=== PATIENT | male | born 1970 | race Caucasian/White ===

== ENCOUNTER 2017-04-01 09:53 | Emergency (ER) | payer OTHER ==
[~2017-04-01] VITALS: Ht 172.7 cm; Wt 82.8 kg
[~2017-04-01 09:53] MED LIST: BUPR150T8 PO; CHLO25CA10 PO; METO-386 PO; SILD10VI2 PO; VENL150C98 PO
[2017-04-01 10:02] VITALS: BP 112/79; PULSE 115; RESP 26; O2SAT 95
--- NOTE | 2017-04-01 10:22 | ED.REPORT ---
HPI-General Illness Date of Service Apr 01, 2017 ED Provider: Jacoby Hawkins MD Patient is a 47 year old male with a hx of CHF (thought secondary to alcoholic cardiomyopathy), EtOH abuse with previous withdrawal related seizures, polysubstance abuse, asthma and aortic stenosis who who presents to the ED complaining of dyspnea on exertion and increasing lower extremity edema over the last week. Associated symptoms include lower extremity swelling, and mild/ vague chest discomfort. When asked about his symptoms he states "my CHF is flaring up." He denies fever, chills, vomiting, or any other symptoms. Pt was prescribed 25 mg metoprolol but has not taken it in the past 6 mo. He does not take a diuretic or any other daily medications. The patient admits to actively using methamphetamine. He states he used IV methamphetamine 3 days ago and smoked methamphetamine this morning. No cough, no fever. He is not currently homeless. Nursing Notes Stated Complaint: CONGESTIVE HEART FAILURE ACTING UP Chief Complaint: Respiratory Distress Nursing Notes Reviewed: Yes Allergies: Coded Allergies: No Known Allergies (Unverified Allergy, Unknown, 04/04/16) Scheduled Bupropion ER (Wellbutrin SR) 150 Mg Tablet.er 150 MG PO BID Furosemide (Lasix) 20 Mg Tablet 20 MG PO BID Magnesium Oxide (Mag-Oxide) 400 Mg Tablet 400 MG PO DAILY Metoprolol Succinate ER (Metoprolol Succinate ER) 25 Mg Tab.er.24h 25 MG PO DAILY Potassium Chloride ER (Potassium Chloride ER) 20 Meq Tablet.er 20 MEQ PO DAILY TAKE WITH FOOD Sildenafil Citrate (Sildenafil Citrate) 10 Mg/12.5 Ml Vial 20 MG PO DAILY Venlafaxine ER (Venlafaxine ER) 150 Mg Cap.er.24h 150 MG PO DAILY Scheduled PRN Chlordiazepoxide (Chlordiazepoxide) 25 Mg Capsule 25 MG PO BID PRN PRN For Anxiety take for 5 days then stop General Time Seen by MD: 10:18 Chief Complaint Breathing problem Hx Obtained From: Patient Arrived By: Walk-in Sudden in Onset?: No Onset Occurred: 1 week ago Symptom Duration: Since onset Location: : Chest Quality: Dull (discomfort ) Severity: Current: Mild Severity: Maximum: Mild Similar Sx Previous: Yes Past Medical History Past Medical History Notes: [facility] Past Medical History 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 Aortic stenosis DE GERD Depression Anxiety Pyloric stenosis as infant Reports: Asthma, Congestive heart failure Past Surgical History Denies Family History Noncontributory Smoking History Current Every Day Smoker Social History Alcohol Use: >5 per day Drug Use: IV drugs, Meth Other Social History: , Local resident, Homeless Ambulatory Status Independent Review of Systems Full Review of Systems Constitutional: Denies: Chills, Fever Respiratory: Reports: Dyspnea on exertion Cardiovascular: Reports: Chest pain (discomfort ) GI: Denies: Vomiting Musculoskeletal: Reports: Extremity swelling Complete sys rev & neg: except as marked. Physical Exam Vital Signs Vital Signs Date Time Temp Pulse Resp B/P Pulse Ox O2 Delivery O2 Flow Rate FiO2 04/01/17 12:01 115 28 112/73 97 Nasal Cannula 2 04/01/17 10:37 119 32 115/77 93 Nasal Cannula 2 04/01/17 10:02 36.5 115 26 112/79 95 Room Air Initial VS: Reviewed, Vital signs abnormal Head / Eyes: Atraumatic, Normocephalic Neck: Full range of motion Abdomen / GI: Soft, Non-tender, No distention Skin: Warm, Dry Neurologic: Alert, Oriented, Nonfocal General/Constitutional: Awake, Alert Respiratory / Chest: Atraumatic Mild crackles in lung bases bilaterally Good air movement Cardiovascular: Regular rhythm, Heart sounds NL Heart Rate / Rhythm: Positive: Tachycardia Good distal pulses 2+ pitting edema symmetrically to the bilateral lower extremities extending above the knees Male Genitourinary: Atraumatic Edema to the scrotum and penis Interpretation & Diagnostics previous ECHO dated 03/11/10: Interpretation Summary The left ventricle is mildly dilated. Left ventricular systolic function is normal. The ejection fraction estimate is 55-60%. Assessment of diastolic parameters indicates normal left ventricular diastolic function and normal filling pressures. The right ventricle is normal in size and function. The left atrium is mildly dilated. Pulmonary artery pressures cannot be estimated because of the lack of a measurable TR jet velocity. There is mild mitral regurgitation. Since 09/22, slight further improvement in LV function and diminution in mitral regurgitation. Lab Results Interpretation Result Diagram: 04/01/17 1045 04/01/17 1125 Test 04/01/17 10:45 04/01/17 11:25 04/01/17 13:02 White Blood Count 7.0th/mm3 (3.8-10.1) Red Blood Count 4.71mil/mm3 (4.40-5.80) Hemoglobin 12.8g/dL (13.8-17.2) Hematocrit 38.8% (41.0-50.0) Mean Corpuscular Volume 82.4fL (81-100) Mean Corpuscular Hemoglobin 27.2pg (27.0-35.0) Mean Corpuscular Hemoglobin Concent 33.0% (32.0-37.0) Red Cell Distribution Width 14.6% (12.3-15.4) Platelet Count 194bil/L (150-400) Neutrophils (%) (Auto) 62.2% (40-74) Lymphocytes (%) (Auto) 25.5% (14-46) Monocytes (%) (Auto) 10.2% (4-12) Eosinophils (%) (Auto) 1.6% (0-5) Basophils (%) (Auto) 0.4% (0-3) Sodium Level 140mEq/L (134-144) Potassium Level 3.9mEq/L (3.5-5.2) Chloride Level 105mEq/L (97-108) Carbon Dioxide Level 19mmol/L (18-29) Blood Urea Nitrogen 20mg/dL (6-24) Creatinine 0.88mg/dL (0.76-1.27) Estimat Glomerular Filtration Rate 99mL/min (>59) Glucose Level 141mg/dL (60-99) Calcium Level 8.9mg/dL (8.5-10.1) Total Bilirubin 1.2mg/dL (0.0-1.2) Aspartate Amino Transf (AST/SGOT) 48U/L (0-50) Alanine Aminotransferase (ALT/SGPT) 42U/L (0-44) Alkaline Phosphatase 67U/L (25-150) Troponin T 0.010ug/L (0.0-0.011) Pro-B-Type Natriuretic Peptide 5433pg/mL (0-121) Total Protein 6.1g/dL (6.4-8.4) Albumin 3.6g/dL (3.4-5.0) Urine Color Straw (YELLOW) Urine Appearance Clear (CLEAR,HAZY) Urine pH 5.0 (5.0-8.0) Urine Specific Lawrence 1.010 (1.003-1.035) Urine Protein Negativemg/dL (NEG,TRACE) Urine Glucose (UA) Negativemg/dL (NEGATIVE) Urine Ketones Negativemg/dL (NEGATIVE) Urine Occult Blood Negative (NEGATIVE) Urine Nitrite Negative (NEGATIVE) Urine Bilirubin Negative (NEGATIVE) Urine Urobilinogen Normalmg/dL (NORMAL) Urine Leukocyte Esterase Negative (NEGATIVE) Urine RBC 0-2/hpf (0-2) Urine WBC 0-5/hpf (0-5) Urine Epithelial Cells Occasional/hpf (NONE-MOD) Urine Crystals None seen (NONE SEEN) Urine Bacteria None/hpf (NONE-FEW) Urine Hyaline Casts None/lpf (NONE) Urine Granular Casts None seen (NONE SEEN) Urine Waxy Casts None seen (NONE SEEN) Urine Red Blood Cell Casts None seen (NONE SEEN) Urine White Blood Cell Casts None seen (NONE SEEN) Urine Mucus None seen (None Seen) Urine Trichomonas None seen (NONE SEEN) Urine Yeast None (NONE SEEN) Urinalysis Comment None Urine Culture Reflexed Not indicated ECG Interpretation ECG Interpretation: Sinus tachycardia rate of 115 L axis deviation prolonged QT interval diffuse T wave abnL throughout all leads compared to prior dated 04/09/16 pt is still tachy though t wave abnL now present Time: 10:13 Interpreted by: ED physician ECG Interpretation: Repeat EKG confirms that diffuse t-wave abnormalities are not due to abnormal lead placements and are, in fact, new. Time: 10:34 Interpreted by: ED physician Repeat ECG: Repeat ECG unchanged X-Ray Chest Interpretation Chest Xray Interpretation: IMPRESSION: Cardiomegaly which has developmental since prior examination. Large pericardial effusion cannot be excluded. Dictated by: Windy Najera MD, PhD on 04/01/2017 at 11:40 Approved by: Windy Najera MD, PhD on 04/01/2017 at 11:42 View: Portable, 1 view Interpretation / Wet Read by: Interpret - Radiologist Re-Eval/Medical Decision Med Decision/Clinical Course Patient is a 47 year old male with a hx of CHF (thought secondary to alcoholic cardiomyopathy), EtOH abuse with previous withdrawal related seizures, polysubstance abuse, asthma and aortic stenosis who who presents to the ED complaining of dyspnea on exertion and increasing lower extremity edema over the last week. Associated symptoms include lower extremity swelling, and mild/ vague chest discomfort. When asked about his symptoms he states "my CHF is flaring up." He denies fever, chills, vomiting, or any other symptoms. Pt was prescribed 25 mg metoprolol but has not taken it in the past 6 mo. He does not take a diuretic or any other daily medications. The patient admits to actively using methamphetamine. He states he used IV methamphetamine 3 days ago and smoked methamphetamine this morning. No cough, no fever. He is not currently homeless. Upon arrival in the emergency department the patient is tachycardic though in no apparent distress. He is noted to have oxygen saturation of 91% on room air and was placed on 2 L by nasal cannula. He is alert/awake and answering questions appropriately. He is afebrile with stable blood pressure. Clinical presentation is consistent with exacerbation of his underlying congestive heart failure, I suspect that his methamphetamine abuse is a major contributor. I applied Nitropaste to his chest and administered 40 mg of IV furosemide. Shortly thereafter he was noted to have produced a large amount of urine. EKG Sinus tachycardia rate of 115 L axis deviation prolonged QT interval diffuse T wave abnL throughout all leads compared to prior dated 04/09/16 pt is still tachy though t wave abnL now present Repeat EKG confirms that diffuse t-wave abnormalities are not due to abnormal lead placements and are, in fact, new. Laboratory studies were reviewed as below: labs CBC unremerk CMP unremark trop neg BNP 5433 Chest xray: cardiomegaly large pericardial effusion previous ECHO dated 03/11/10 Interpretation Summary The left ventricle is mildly dilated. Left ventricular systolic function is normal. The ejection fraction estimate is 55-60%. Assessment of diastolic parameters indicates normal left ventricular diastolic function and normal filling pressures. The right ventricle is normal in size and function. The left atrium is mildly dilated. Pulmonary artery pressures cannot be estimated because of the lack of a measurable TR jet velocity. There is mild mitral regurgitation. Since 09/22, slight further improvement in LV function and diminution in mitral regurgitation. Presentation at this time is consistent with exacerbation of the patient's underlying congestive heart failure in the setting of polysubstance abuse and noncompliance with his medications. The differential diagnosis does include valvular etiologies and he is at higher risk for valvular problems given his IV drug use. He is also noted to have a history of some mild aortic stenosis. I recommended that we start diuresis and admit the patient for ongoing medical management, consultation with cardiology and echocardiogram. The patient was discussed with the admitting hospitalist and accepted for further management. The patient initially seemed amenable to admission to the hospital though later changed his mind stating that he absolutely would not be admitted to the hospital. I had a long conversation about this with the patient and at this time he demonstrates understanding and insight into his condition as well as decisional capacity. He understands the risks of refusing to be admitted to the hospital. I lieu of the patient's refusal to be admitted I contacted his mule driver (Dr. Conley diamond setter apprentice for Dr. Noe). We reviewed his most recent echocardiogram in 2012 as well as history and presentation today. They have recommended that we start him on 40 mg of Lasix daily as well as potassium repletion. They agreed to see him in clinic and he will call them first thing on Monday for an appointment. At this time the patient is being discharged AGAINST MEDICAL ADVICE. He has been provided prescriptions and agrees to follow up with his primary care physician and mule driver on an outpatient basis. He is noted to still be tachycardic and I suspect that this is likely due to his recent methamphetamine abuse though potentially also related to his congestive heart failure exacerbation. The patient does not have major pulmonary embolism risk factors and his initial presentation is less convincing for PE. He is noted to have diffuse T wave changes on his EKG which may be related to demand ischemia as well as cardiac stress related to methamphetamine abuse and congestive heart failure. My additional recommendations related to this were serial troponin testing and possible CT angiogram which she has also refused as he refuses admission. The patient was discharged and we have discussed this follow-up plan as well as return precautions and that he should come back at any time should he desire to be admitted to the hospital for further workup and treatment. He is also repeatedly been urged to stop using methamphetamine. Time of Eval: 12:51 Re-Evaluation/Progress Note: Rechecked pt. Discussed lab and imaging results. Discussed treatment plan including admission and ECHO. Pt asked if he could have treatment as an outpatient. Explained in depth the risks of leaving and benefits of admission. Pt would like to think about it. Time of Eval: 13:31 Re-Evaluation/Progress Note: Rechecked pt and offered admsision again. Pt refuses admission and requests consultation with his mule driver about outpatient treatment. Consultation #1: Referral / Consult Name: Javier Crespo MD Consulted With: Hospitalist Call Returned at: 12:56 Construction Representative: Will see patient, Agrees with eval, Agrees with plan, Accepts admit Note: Discussed pt's case. Accepts admit. Consultation #2: Referral / Consult Name: Jose A Conley MD Consulted With: Cardiology Call Returned at: 13:47 Note: Discussed pt's case. Pt had an ECHO in 2012 that showed normal LV function. Start pt on Lasix 40mg, 40mg potassium, and 400mg of mag oxide daily. Follow up with cardiology and PCP. Stop using meth. Counseled Regarding: Diagnosis, Lab results, Need for admission Discharge & Departure Primary Impression: CHF exacerbation Congestive heart failure type: unspecified congestive heart failure type Qualified Code: I50.9 - Heart failure, unspecified Additional Impressions: Tachycardia Cardiomegaly Methamphetamine abuse IV drug abuse Counseling on substance use and abuse Elevated brain natriuretic peptide (BNP) level Alcoholic cardiomyopathy Noncompliance by refusing intervention or support Disposition: Home Discharge Condition All VS Reviewed: Yes Condition: Stable Additional Instructions: Thank you for seeking care at the emergency room. It is difficult for us to make definitive diagnoses in the ED but we believe that you are experiencing an exacerbation of your congestive heart failure. It was strongly recommended that you be admitted but you have decided to leave against our advice. Please return if you change your mind. Our primary goal today in the ED was to evaluate you for any life-threatening conditions. Your evaluation was reassuring. You will be discharged with prescriptions for Lasix, potassium, and Mag Oxide. Please take as directed. Please stop using meth. Call your mule driver and primary doctor first thing on Monday to schedule follow up appointments within the next week. You should return to the ED immediately if you develop fevers, vomiting, cough, shortness of breath, lower extremity swelling, chest pain, lightheadedness, weakness or any other concerning signs or symptoms. Thank you for letting us partake in your care today. Referrals: Crow Langley MD (PCP) Scribe Attestation Portions of this note were transcribed by Ivis Felix. I, Dr. Hawkins personally performed the history, physical exam and medical decision-making; I reviewed and confirmed the accuracy of the information in the transcribed note. Signed by: Rosalee Saldana, 04/01/17 copies to: Crow Langley MD, Beck O MD Apr 01, 2017 10:22 IVIS FELIX Apr 01, 2017 10:29
[2017-04-01] MEDS ORDERED: Nitroglycerin 2% 1 Gm Ointment TOPICAL SCH (10:35)
[2017-04-01] MEDS ORDERED: Furosemide 10 mg/mL 4 mL Inj IVPUSH ONE (10:35)
[2017-04-01 10:37] VITALS: BP 115/77; PULSE 119; RESP 32; O2SAT 93
[2017-04-01 10:57] LABS: BASOPHILS % (AUTO) 0.4 % (0-3); EOSINOPHILS % (AUTO) 1.6 % (0-5); MONOCYTES % (AUTO) 10.2 % (4-12); Mean Corpuscular Hemoglobin 27.2 pg (27.0-35.0); Mean Corpuscular Volume 82.4 fL (81-100); NEUTROPHILS % (AUTO) 62.2 % (40-74); Platelet Count 194 bil/L (150-400)
--- NOTE | 2017-04-01 11:44 | DRSVH ---
PROCEDURE: X-RAY CHEST ONE VIEW, PORTABLE ([id number]) INDICATIONS: dyspnea TECHNIQUE: One view of the chest was acquired. COMPARISON: [facility], CR, XR CHEST 1VW (PORTABLE), 03[facility]19[facility]2016, 14:29[facility], [facility], 18:21. [facility], CR, XR CHEST 1VW (PORTABLE), 03/17, 23:52. FINDINGS: Surgical changes and devices: None. Lungs and pleura: No pleural effusions or pneumothorax. Lungs are clear. Mediastinum: Mediastinal contours appear normal. Heart size is enlarged. Bones and chest wall: No suspicious bony lesions. Overlying soft tissues appear unremarkable. IMPRESSION: Cardiomegaly which has developmental since prior examination. Large pericardial effusion cannot be excluded. Dictated by: Windy Najera MD, PhD on 04/01/2017 at 11:40 Approved by: Windy Najera MD, PhD on 04/01/2017 at 11:42
[2017-04-01 12:01] VITALS: BP 112/73; PULSE 115; RESP 28; O2SAT 97
[2017-04-01 12:07] LABS: TROPONIN T 0.01 ug/L (0.0-0.011)
[2017-04-01] MEDS ORDERED: Alum-Mag Hydrox-Simeth 30 mL Suspension PO PRN (12:30)
[2017-04-01] MEDS ORDERED: Ondansetron 2 mg/mL 2 mL Inj IVPUSH PRN (12:30)
[2017-04-01 13:46] VITALS: BP 119/71; PULSE 112; RESP 20; O2SAT 97
[2017-04-01 13:47] LABS: APPEARANCE,URINE CLEAR (CLEAR,HAZY); COLOR,URINE STRAW (YELLOW); OCCULT BLOOD,URINE NEGATIVE (NEGATIVE); UROBILINOGEN,URINE NORMAL (NORMAL)
[2017-04-01] MEDS ORDERED: MAGN400T23 PO (13:57)
[2017-04-01] MEDS ORDERED: FURO-129 PO (13:57)
[2017-04-01] MEDS ORDERED: POTA-62 PO (13:57)
[2017-04-01 14:58] VITALS: BP 119/80; PULSE 109; RESP 26; O2SAT 97
[2017-04-07] MEDS ORDERED: FURO40TA4 PO (10:42)
[2017-04-07] MEDS ORDERED: WARF5TAB7 PO (10:42)
[2017-04-07] MEDS ORDERED: CARV3.122 PO (10:42)
[2017-04-07] MEDS ORDERED: LISI-571 PO (10:42)
== END 2017-04-01 15:01 | disposition home or self-care (01) ==
LOC: SED 09:53 → UNDOADMIN 13:16 → MPC 13:16
DX: I50.9 Heart failure, unspecified (principal); R00.0 Tachycardia, unspecified; Q24.8 Other specified congenital malformations of heart; F15.10 Other stimulant abuse, uncomplicated; R79.89 Other specified abnormal findings of blood chemistry; I42.6 Alcoholic cardiomyopathy; I25.2 Old myocardial infarction; K21.9 Gastro-esophageal reflux disease without esophagitis; F17.200 Nicotine dependence, unspecified, uncomplicated; Z91.19 Patient's noncompliance with other medical treatment and regimen
CPT/HCPCS: 36415; 71010; 80053; 81000; 83880; 84484; 85025; 93005; 96374; 99285; J1940

== ENCOUNTER 2017-04-15 16:19 | Inpatient (IN) | payer OTHER ==
[~2017-04-15] VITALS: Ht 172.7 cm; Wt 77.5 kg
[~2017-04-15 16:19] MED LIST changes: -BUPR150T8 PO; +CARV3.122 PO; -CHLO25CA10 PO; +DABI150C PO; +FUR20 PO; +IBUP200C PO; +LISI-571 PO; +MAGN400T23 PO; -METO-386 PO; +NAPR220C16 PO; +POTA-62 PO; -SILD10VI2 PO; -VENL150C98 PO
[2017-04-15 16:38] VITALS: BP 106/75; PULSE 114; RESP 24; O2SAT 96
--- NOTE | 2017-04-15 19:18 | ED.REPORT ---
HPI-General Illness Date of Service Apr 15, 2017 ED Provider: Donis Anglin MD The patient is a 47 year old homeless male with a history of CHF, [place], edema, COPD, pneumonia, GERD, and depression presenting to the ED complaining of chest pain onset earlier today. The pain is in the middle of his chest and is nonradiating. He describes the pain as sharp and similar to previous chest pain he's experienced. The pain is exacerbated with movement and deep breaths. He claims that nothing relieves the pain. Additionally, the patient reports SOB that is progressively worsening. The patient has not other complaints. The patient was discharged yesterday after being diagnosed with an acute hypoxic respiratory failure. Nursing Notes Stated Complaint: SHORTNESS OF BREATH,CHEST PAIN, WEAK, BLUE IN NOSE Chief Complaint: Respiratory Distress Nursing Notes Reviewed: Yes Allergies: Coded Allergies: No Known Allergies (Verified Allergy, Unknown, 04/15/17) Scheduled Carvedilol (Carvedilol) 3.125 Mg Tablet 6.25 MG PO BIDWM Dabigatran Etexilate Mesylate (Pradaxa) 150 Mg Capsule 150 MG PO BID Furosemide (Furosemide) 20 Mg Tab 20 MG PO BIDWM Lisinopril (Lisinopril) 5 Mg Tablet 2.5 MG PO DAILY Magnesium Oxide (Mag-Oxide) 400 Mg Tablet 400 MG PO DAILY Potassium Chloride ER (Potassium Chloride ER) 20 Meq Tablet.er 20 MEQ PO DAILY TAKE WITH FOOD Scheduled PRN Albuterol HFA (Proair HFA) 8.5 Gm Hfa.aer.ad 2 PUFFS INHALATION Q4H PRN PRN For Shortness of Breath General Time Seen by MD: 19:14 Chief Complaint Chest pain Hx Obtained From: Patient Arrived By: Walk-in Sudden in Onset?: Yes Onset Occurred: 1 - 4 hours ago Symptom Duration: Since onset Location: : Chest Quality: Same as prior Radiation: : Does not radiate Severity: Current: Moderate Severity: Maximum: Moderate Associated with: Reports: Shortness of breath Exacerbated by: Moving affected area, Standing up Pertinent Negative: Relieved by nothing Recent Healthcare: Recent doctor visit, Recent hospitalization Similar Sx Previous: Yes Past Medical History Past Medical History Notes: Cards: [place] Just left AMA after admit for PE Past Medical History 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 Aortic stenosis [place] GERD Depression Anxiety Pyloric stenosis as Reports: Asthma, Congestive heart failure Past Surgical History Pyloric stenosis repair as an Family History Noncontributory Smoking History Current Every Day Smoker Social History Alcohol Use: >5 per day Drug Use: IV drugs, Meth Other Social History: , Local resident, Homeless Ambulatory Status Independent Review of Systems Full Review of Systems Constitutional: Denies: Fever Eyes: Denies: Visual loss left, Visual loss right Ears / Nose / Throat: Denies: Sore throat Respiratory: Reports: Dyspnea on exertion, Shortness of breath Cardiovascular: Reports: Chest pain GI: Denies: Abdominal pain Male: Denies Dysuria Musculoskeletal: Denies: Back pain Hematologic: Denies Petechiae Endocrine: Denies: Polyuria Skin: Denies Bruising Allergy / Immune: Denies: Itching Neurologic: Denies: Headache Psychiatric: Denies: Change mental status Complete sys rev & neg: except as marked. Physical Exam Nursing note and vitals reviewed. Constitutional: Well-developed, well-nourished. Not diaphoretic. Head: Normocephalic and atraumatic. Mouth/Throat: Oropharynx is clear and moist. No oropharyngeal exudate. Eyes: EOM are normal. Pupils are equal, round, and reactive to light. Neck: Supple, no tracheal deviation. Cardiovascular: Tachycardic, regular rhythm. Equal and intact distal pulses throughout. Pulmonary/Chest: Effort normal and breath sounds normal. No respiratory distress. Abdominal: Soft. No distension. There is no tenderness, rebound, or guarding. Bowel sounds present. Musculoskeletal: Range of motion grossly intact, moving all extremities. No edema or tenderness appreciated. Neurological: AOx3. Grossly nonfocal exam. Strength and sensation intact and equal to bilateral upper and lower extremities. Skin: Warm and dry, no rashes or pallor appreciated. Psychiatric: Appropriate mood and affect. Behavior appears normal. Vital Signs Vital Signs Date Time Temp Pulse Resp B/P Pulse Ox O2 Delivery O2 Flow Rate FiO2 04/15/17 22:50 107 20 103/65 98 Room Air 04/15/17 20:27 106 20 106/80 92 Room Air 04/15/17 16:38 37.1 114 24 106/75 96 Room Air Initial VS: Reviewed Interpretation & Diagnostics Lab Results Interpretation Result Diagram: 04/15/17194204/15/171942 Test 04/15/17 19:43 White Blood Count 11.3th/mm3 (3.8-10.1) Red Blood Count 5.02mil/mm3 (4.40-5.80) Hemoglobin 13.1g/dL (13.8-17.2) Hematocrit 39.1% (41.0-50.0) Mean Corpuscular Volume 77.9fL (81-100) Mean Corpuscular Hemoglobin 26.1pg (27.0-35.0) Mean Corpuscular Hemoglobin Concent 33.5% (32.0-37.0) Red Cell Distribution Width 14.4% (12.3-15.4) Platelet Count 208bil/L (150-400) Neutrophils (%) (Auto) 67.6% (40-74) Lymphocytes (%) (Auto) 18.3% (14-46) Monocytes (%) (Auto) 13.1% (4-12) Eosinophils (%) (Auto) 0.4% (0-5) Basophils (%) (Auto) 0.2% (0-3) Activated Partial Thromboplast Time 29.7sec (22.8-33.0) Sodium Level 136mEq/L (134-144) Potassium Level 4.2mEq/L (3.5-5.2) Chloride Level 99mEq/L (97-108) Carbon Dioxide Level 21mmol/L (18-29) Blood Urea Nitrogen 22mg/dL (6-24) Creatinine 0.70mg/dL (0.76-1.27) Estimat Glomerular Filtration Rate 129mL/min (>59) Glucose Level 107mg/dL (60-99) Calcium Level 8.8mg/dL (8.5-10.1) Magnesium Level 2.1mg/dL (1.6-2.6) Total Bilirubin 1.2mg/dL (0.0-1.2) Aspartate Amino Transf (AST/SGOT) 51U/L (0-50) Alanine Aminotransferase (ALT/SGPT) 95U/L (0-44) Alkaline Phosphatase 60U/L (25-150) Troponin T < 0.010ug/L (0.0-0.011) Pro-B-Type Natriuretic Peptide 6261pg/mL (0-121) Total Protein 6.5g/dL (6.4-8.4) Albumin 3.5g/dL (3.4-5.0) Hold Deleon Top Tube Received (Received) Lab Results Interpretation: LABS: BNP 6261 from 4095 1 week ago Troponin negative Mildly elevated LFTs down from previous WBC 11.3 from 10.2 yesterday Vitals: Tachycardia 114 Respiratory rate 20 from 24 BP 106/80 92% Room air ECG Interpretation ECG Interpretation: Sinus tachycardia Right atrial enlargement Incomplete RBBB and LAFB Consider RVH w/ secondary repol abnormality Rate 115 Time: 19:04 Interpreted by: ED physician Normal ECG Interpretation: No change from prior ECGs CT Chest Interpretation IMPRESSION: Interval significant reduction in size of a previously documented right lower lobe central pulmonary embolus, reduced in volume by approximately 1/2 from the prior study dated 04/09/17. No new pulmonary embolus is seen. Note is again made of global cardiomegaly, in this patient with previously reported cardiomyopathy. Dictated by: Duane Monroy M.D. on 04/15/2017 at 21:35 Interpretation / Wet Read by: Interpret - Radiologist Re-Eval/Medical Decision Med Decision/Clinical Course 47-year-old male with a complex past medical history including CHF, dilated cardiomyopathy, recent admission for pulmonary embolus presenting to the ED for evaluation of worsening chest pain and shortness of breath. Differential includes ACS, PE, pneumothorax, pneumonia, etc. Laboratory studies as per above , notable for BNP 6261 from 73235 week ago, troponin negative, mildly elevated LFTs however down from previous, white blood count of 11.3 from 10.2 yesterday. Patient tachycardic, dyspneic here in the ED. Repeat CT demonstrates continued pulmonary embolus as previously. Patient restarted on heparin drip here in the emergency department. Plan admission for further management and evaluation of this complex and critically ill patient. Time of Eval: 21:57 Re-Evaluation/Progress Note: Discussed plan to admit. Pt agrees. Consultation : Referral / Consult Name: Bharti Shi DO Call Returned at: 21:23 Rn Vascular: Will see patient, Agrees with plan, Accepts admit Counseled Regarding: Diagnosis, Lab results, Need for admission Discharge & Departure Primary Impression: Dyspnea Dyspnea type: unspecified Qualified Code: R06.00 - Dyspnea, unspecified Additional Impression: Pulmonary embolism Pulmonary embolism type: other Chronicity: unspecified Acute cor pulmonale presence: without acute cor pulmonale Qualified Code: I26.99 - Other pulmonary embolism without acute cor pulmonale Disposition: ADMITTED TO HOSPITAL Discharge Condition All VS Reviewed: Yes Condition: Stable Referrals: NOPCP (PCP) [facility] Crit Care Except Billable Proc Time Spent: 30-74 minutes Services Performed: Patient management by me, Time spent at bedside, Reviewing test results, Reviewing imaging, Discussing patient care, Documentation in record Critical Care Notes: Please see MDM. 35 minutes of critical care time was spent in the management of this patient. Scribe Attestation Portions of this note were transcribed by Vitor Bruno. Dr. Derrek Chu personally performed the history, physical exam and medical decision-making; I reviewed and confirmed the accuracy of the information in the transcribed note. Signed by: Rosalee Interiano, 04/15/2017 copies to: [facility] Donis Anglin MD Apr 15, 2017 19:18 Apr 15, 2017 19:21 Nicotine dependence, chronic Cessation discussed and encouraged - Nicotine patch and lozenges when necessary Time of Eval: 21:57 Re-Evaluation/Progress Note: Discussed plan to admit. Pt agrees. Consultation : Referral / Consult Name: Bharti Shi Enoc BASHIR Call Returned at: 21:23 Rn Vascular: Will see patient, Agrees with plan, Accepts admit Counseled Regarding: Diagnosis, Lab results, Need for admission Discharge & Departure Primary Impression: Dyspnea Dyspnea type: unspecified Qualified Code: R06.00 - Dyspnea, unspecified Additional Impression: Pulmonary embolism Pulmonary embolism type: other Chronicity: unspecified Acute cor pulmonale presence: without acute cor pulmonale Qualified Code: I26.99 - Other pulmonary embolism without acute cor pulmonale Disposition: ADMITTED TO HOSPITAL Discharge Condition All VS Reviewed: Yes Condition: Stable Referrals: NOPCP (PCP) [facility] Scribe Attestation Portions of this note were transcribed by Vitor Bruno. Dr. Derrek Chu personally performed the history, physical exam and medical decision-making; I reviewed and confirmed the accuracy of the information in the transcribed note. Signed by: Rosalee Interiano, 04/15/2017 copies to: [facility] Donis Anglin MD Apr 15, 2017 19:18 Apr 15, 2017 19:21
[2017-04-15 19:47] LABS: BASOPHILS % (AUTO) 0.2 % (0-3); EOSINOPHILS % (AUTO) 0.4 % (0-5); MONOCYTES % (AUTO) 13.1 % (4-12); Mean Corpuscular Hemoglobin 26.1 pg (27.0-35.0); Mean Corpuscular Volume 77.9 fL (81-100); NEUTROPHILS % (AUTO) 67.6 % (40-74); Platelet Count 208 bil/L (150-400)
[2017-04-15 20:27] VITALS: BP 106/80; PULSE 106; RESP 20; O2SAT 92
[2017-04-15 20:28] LABS: TROPONIN T < 0.010 ug/L (0.0-0.011)
[2017-04-15 20:56] LABS: Magnesium 2.1 mg/dL (1.6-2.6)
--- NOTE | 2017-04-15 21:41 | DRSVH ---
PROCEDURE: CT ANGIO CHEST PULMONARY EMBOLISM ([id number]) INDICATIONS: worsening CP, dyspnea TECHNIQUE: After the administration of intravenous contrast, 2 mm thick sections acquired from the pulmonary api ed to the posterior costophrenic angles. 3-dimensional maximum intensity projection (MIP) coronal a nd sagittal reformats were then acquired through the thorax. For radiation dose reduction, the follo wing was used: automated exposure control, adjustment of mA and/or kV according to patient size. COMPARISON: [facility], CT, CT ANGIO CHEST PE, 04/09/2017, 0:14. [facility], CR, XR CHEST 1VW (PORTABLE), 04/11/2017, 15:38. FINDINGS: Image quality: Excellent. Pulmonary arteries: Pulmonary arteries are normal in size, and demonstrate no new intraluminal filli ng defects to suggest new central pulmonary embolism. Previously present right lower lobe pulmonary emboli (see prior CT 04/09/17, series 5 image 79) have improved (current study series 4 image 91). Th e volume of thrombus in this area has diminished by at least one half. Lungs and pleura: Lungs are clear. No pleural effusions or pneumothorax. Central and peripheral ai rways are patent. Mediastinum: Heart size is globally enlarged, chronically, without pericardial effusion. No mediast inal or hilar adenopathy. Thoracic aorta is normal in caliber and enhancement. Esophagus is normal in caliber, without hiatal hernia. Bones and chest wall: No suspicious bony lesions. Ribs and thoracic spine appear intact throughout. Thyroid gland appears normal where well visualized. No axillary or supraclavicular adenopathy. Abdomen: Visualized upper abdominal solid organs appear normal in the early arterial phase of enhanc ement. IMPRESSION: Interval significant reduction in size of a previously documented right lower lobe centr al pulmonary embolus, reduced in volume by approximately 1/2 from the prior study dated 04/09/17. No new pulmonary embolus is seen. Note is again made of global cardiomegaly, in this patient with previously reported cardiomyopathy. Dictated by: Duane Monroy M.D. on 04/15/2017 at 21:35 Approved by: Duane Monroy M.D. on 04/15/2017 at 21:39
--- NOTE | 2017-04-15 21:43 | PCM.HPMED ---
Subjective Date of Service Apr 15, 2017 Primary Provider: Admitting Physician: Primary Care Physician: Chris Attending Physician: Admit Status: From the Emergency Department Chief Complaint: shortness of breath History of Present Illness: 47yoM with past medical history of noncompliance, leaving AMA, ventricular thrombus with PE, congestive heart failure, dilated cardiomyopathy and methamphetamine abuse with discharge on day of admission presenting with acute onset of shortness of breath. Patient was recently admitted from 04/05-04/07 for CHF exacerbation. ECHO was completed 04/05/2017 with EF of 20-25% with evidence of right ventricular thrombus. During this admission patient was treated with heparin, diuresed, started on carvedilol and EUSEBIO per Dr. Garcia and discharged with warfarin and planned on follow up with the residency clinic. 04/09 patient was readmitted with acute dyspnea and subtherapeutic INR. CTPA was completed and confirmed diagnosis of pulmonary embolism. Heparin gtt was started. Patient left AMA in the roundhouse worker hours of 04/11 but returned to the hospital for readmission on the same day. Discharge date of 04/13 on pradaxa. During this hospitalization carvedilol was increased and lisinopril continued. Discharge was to family's home in order to be monitored closely before rehab. Following discharge patient's brothers were to take patient to his van to [employer] then to [facility] and finally to [place] he would be staying. This never happened due to an argument between Mr. Leyva and his brother. He made it to his van where he stayed unable to make it to [facility] to [employer] [facility]. Today in the roundhouse worker patient realized that he was having worsening dyspnea and called to be taken to a group home and later called a cab to bring him into the ED. On presentation T 37.1, HR 114, RR 24, BP 106/75, 96% on RA, WBC 11.3, hgb 13.1 , probnp >6261. CTPA reviewed on admission demonstrating ventricular thrombus and PE. Review of Systems: complete review of systems obtained. positive as per hpi otherwise negative . Allergies Coded Allergies: No Known Allergies (Verified Allergy, Unknown, 04/15/17) Home Medications Discharge medications from 04/13 Discharge Medications Carvedilol (Carvedilol) 3.125 Mg Tablet 6.25 MG PO BIDWM Prescribed by: CANELA A JEWEL, DO Dabigatran Etexilate Mesylate (Pradaxa) 150 Mg Capsule 150 MG PO BID Prescribed by: HILTON HOLLOWAY DO Furosemide (Furosemide) 20 Mg Tab 20 MG PO BID (Reported) Lisinopril (Lisinopril) 5 Mg Tablet 2.5 MG PO DAILY Prescribed by: Sofy [facility] Magnesium Oxide (Mag-Oxide) 400 Mg Tablet 400 MG PO DAILY Prescribed by: FIORELLA CURIEL MD Potassium Chloride ER (Potassium Chloride ER) 20 Meq Tablet.er 20 MEQ PO DAILY TAKE WITH FOOD Prescribed by: FIORELLA CURIEL MD As needed Ibuprofen (Ibuprofen) 200 Mg Capsule 600 MG PO DAILY PRN PRN For Pain (Reported ) Naproxen Sodium (Naproxen Sodium) 220 Mg Capsule 220 MG PO BID PRN PRN For Pain (Reported) PMH 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 Aortic stenosis [place] GERD Depression Anxiety Pyloric stenosis as infant Asthma Congestive heart failure Methamphetamine Abuse, last used 04/04/17 Family History non-contributory Social History Occupation: unemployed Hx Alcohol Use: Yes Hx Substance Use: Yes (meth smoke/inject about 3 times a day in last 3 weeks) Smoking Status: Current Every Day Smoker Living Arrangement: Homeless Exam Vital Signs Vital Sign - Last Date Time Temp Pulse Resp B/P Pulse Ox O2 Delivery O2 Flow Rate FiO2 04/15/17 20:27 106 20 106/80 92 Room Air 04/15/17 16:38 37.1 Exam General: Alert, Oriented X3, Cooperative, Mild respiratory distress Eyes: PERRLA, Scleral Anicteric Mouth: Mouth Normal, Mucous Membranes Moist/[place] Neck: Supple, no Thyromegaly, trachea central. Chest & Lungs: Clear to auscultation & percussion, No adventitious breath sounds, no crackles, no wheeze Cardiovascular: Normal S1, Normal S2, No Murmurs/Rubs/Gallops, sinus tachycardia (No JVD, no peripheral edema) Pulses: Radial (present and equal), Dorsalis Pedi (present and equal) Abdomen: Soft, Non-tender, Non-distended, Normoactive bowel tones. Musculoskeletal: Unremarkable. Normal range of motion, no swollen or erythematous joints Extremities: No edema, no cyanosis, no clubbing. Skin: No rashes. Warm and dry, no erythematous areas Neurological: Grossly neurologically intact, Normal Speech, Sensation Intact Lymphatic: Lymph nodes Cervical and Axillary not palpable. Lab and Diagnostics Result Diagram: 04/15/17194204/15/171942 X-Rays, CTs and MRIs Patient Name: ADRIA LEYVA MR#: [id number] Location: [facility] Ordering Phys: Donis Angiln MD Date of Service: 04/15/171958 PROCEDURE: CT ANGIO CHEST PULMONARY EMBOLISM ([id number]) INDICATIONS: worsening CP, dyspnea TECHNIQUE: After the administration of intravenous contrast, 2 mm thick sections acquired from the pulmonary apices to the posterior costophrenic angles. 3-dimensional maximum intensity projection (MIP) coronal and sagittal reformats were then acquired through the thorax. For radiation dose reduction, the following was used: automated exposure control, adjustment of mA and/or kV according to patient size. COMPARISON: [facility], CT, CT ANGIO CHEST PE, 04/09/2017, 0:14. [facility], CR, XR CHEST 1VW (PORTABLE), 04/11/2017, 15:38. FINDINGS: Image quality: Excellent. Pulmonary arteries: Pulmonary arteries are normal in size, and demonstrate no new intraluminal filling defects to suggest new central pulmonary embolism. Previously present right lower lobe pulmonary emboli (see prior CT 04/09/17, series 5 image 79) have improved (current study series 4 image 91). The volume of thrombus in this area has diminished by at least one half. Lungs and pleura: Lungs are clear. No pleural effusions or pneumothorax. Central and peripheral airways are patent. Mediastinum: Heart size is globally enlarged, chronically, without pericardial effusion. No mediastinal or hilar adenopathy. Thoracic aorta is normal in caliber and enhancement. Esophagus is normal in caliber, without hiatal hernia. Bones and chest wall: No suspicious bony lesions. Ribs and thoracic spine appear intact throughout. Thyroid gland appears normal where well visualized. No axillary or supraclavicular adenopathy. Abdomen: Visualized upper abdominal solid organs appear normal in the early arterial phase of enhancement. IMPRESSION: Interval significant reduction in size of a previously documented right lower lobe central pulmonary embolus, reduced in volume by approximately 1 /2 from the prior study dated 04/09/17. No new pulmonary embolus is seen. Note is again made of global cardiomegaly, in this patient with previously reported cardiomyopathy. Dictated by: Duane Monroy M.D. on 04/15/2017 at 21:35 Approved by: Duane Monroy M.D. on 04/15/2017 at 21:39 Assessment & Plan 47yoM with past medical history of noncompliance, leaving AMA, ventricular thrombus with PE, congestive heart failure, dilated cardiomyopathy and methamphetamine abuse with discharge on day of admission presenting with acute onset of shortness of breath. Dyspnea, acute, POA -likely multifactorial in nature a/w PE and CHF -CTPA reviewed on admission, rads report also reviewed, "significant reduction in previously documented right lower lobe central pulmonary embolus" -unable to get medications following discharge Chronic Systolic Congestive Heart Failure and Dilated Cardiomyopathy -ECHO showed dilated left ventricle and EF of 20-25% during previous admission, prior reports reviewed on admission -Monitor daily weights and strict I&O's -Continue carvedilol 6.5mg BID -Lisinopril 2.5 mg daily -20mgIV lasix given on admission, continue 20mg IV BID Pulmonary embolism with right ventricular thrombus. Present on admission. -PE with ventricular thrombus -discharged recently with pradaxa -started heparin gtt on presentation, will continue at this time -dyspnea likely associated with CHF Elevated LFT, present on admission, active -Continue to monitor LFTs -Avoid hepatotoxic drugs Right upper lobe 4 mm pulmonary nodule. Present on admission -As per prior admission -Per recommendations of radiology, Initial follow-up CT at 6-12 mo, then 18-24 mo if no change. History of Substance (methamphetamine) Abuse and dependence, chronic - As per prior admission - Hepatitis C panel showed positive antibodies, - Follow up as outpatient Nicotine dependence, chronic - Nicotine patch available upon request Pain Evaluation: Adequate Pain Control VTE Prophylaxis: Other (heaprin gtt) Resuscitation Status: CPR: Attempt Resuscitation Bharti Shi DO Apr 15, 2017 21:43
[2017-04-15] MEDS ORDERED: Polyethylene Glycol (PEG) 17 Gm Powder PO PRN (21:45)
[2017-04-15] MEDS ORDERED: Alum-Mag Hydrox-Simeth 30 mL Suspension PO PRN (21:45)
[2017-04-15] MEDS ORDERED: Ondansetron 2 mg/mL 2 mL Inj IVPUSH PRN (21:45)
[2017-04-15] MEDS ORDERED: Heparin 5,000 Unit/mL Inj IVPUSH ONE (21:50)
[2017-04-15] MEDS ORDERED: Heparin 25K Unit/500mL 0.45 NS 25,000 UNIT in IV Premix 1 EACH IV ONE (21:50)
[2017-04-15] MEDS ORDERED: ALBU8.5H2 INHALATION (22:27)
[2017-04-15] MEDS ORDERED: METO-386 PO (22:27)
[2017-04-15] MEDS ORDERED: Heparin 25K Unit/500mL 0.45 NS 25,000 UNIT in IV Premix 1 EACH IV SCH (22:30)
[2017-04-15] MEDS ORDERED: Heparin 5,000 Unit/mL Inj IVPUSH PRN ×2 (22:30→22:32)
[2017-04-15 22:50] VITALS: BP 103/65; PULSE 107; RESP 20; O2SAT 98
[2017-04-15] MEDS ORDERED: Furosemide 10 mg/mL 2 mL Inj IVPUSH ONE (23:40)
--- NOTE | 2017-04-15 23:43 | NUR ---
Admission Pt arrived onto [facility] alert and oriented x 3 at 2330 [address]. Pt able to ambulate to scale and onto bed with a steady gait. Pt oriented to telephone, television, bed controls, lights, and call light for assistance. present in room with pt. Telemetry placed on pt. Denies shortness of breath on RA, chest pain and pressure. Belongings locked in closet and sharps container removed per substance abuse hx. Care continues.
[2017-04-15] MEDS ORDERED: LORazepam 0.5 mg Tablet PO ONE (23:45)
[2017-04-15 23:51] VITALS: BP 116/77; PULSE 117; RESP 20; O2SAT 96
[2017-04-16] MEDS ORDERED: Albuterol 2.5 mg/3 mL Inhalation Solution NEB PRN (07:00)
== END 2017-04-16 01:44 | disposition admitted as inpatient to this hospital (09) | DRG 951 ==
LOC: SED 16:19 → MPC 23:18
PROVIDERS: ADMIT Internal Medicine; ATTEND Internal Medicine
DX: R69 Illness, unspecified (principal)